=== PATIENT | male | born 1980 | race African-American/Black ===

== ENCOUNTER 2020-11-11 09:58 | Inpatient (IN) | payer MEDICAID, OTHER ==
[~2020-11-11] VITALS: Ht 177.8 cm; Wt 80.3 kg
[2020-11-11] MEDS ORDERED: ACETAMINOPHEN 325MG TABLET PO STA (10:19)
[2020-11-11] MEDS ORDERED: SODIUM CHLORIDE 0.9% 1000ML BAG (SEPSIS BOLUS) IV ONE (10:30)
[2020-11-11 10:49] LABS: HEMATOCRIT. 39.1 % (42.0-52.0); HEMOGLOBIN. 13.6 g/dL (14.0-18.0); MEAN CORPUSCULAR HEMOGLOBIN 30.5 pg (28.0-32.0); MEAN CORPUSCULAR VOLUME 88.1 fL (80.0-94.0); MEAN PLATELET VOLUME 9.1 fl (7.4-10.4); PLATELET 144 x1000/uL (130-400); RED BLOOD CELL COUNT 4.44 mill/uL (4.7-6.1); RED CELL DISTRIBUTION WIDTH 12.7 % (11.6-14.6)
[2020-11-11 10:50] LABS: CLARITY URINE CLEAR (CLEAR); COLOR URINE YELLOW (YELLOW); KETONES URINE NEGATIVE (NEGATIVE); LEUKOCYTE ESTERASE URINE NEGATIVE (NEGATIVE); NITRITE URINE NEGATIVE (NEGATIVE); OCCULT BLOOD URINE NEGATIVE (NEGATIVE); PROTEIN URINE NEGATIVE (NEGATIVE); SPECIFIC GRAVITY URINE 1.005 (1.005-1.030); UROBILINOGEN URINE 0.2 E.U./dL (0.2-1.0)
[2020-11-11 10:57] LABS: CHLORIDE 107 mEq/L (98-107)
[2020-11-11 10:58] LABS: INR 1.1; PROTHROMBIN TIME 11.8 sec (9.6-11.0)
[2020-11-11 12:29] LABS: PLATELET ESTIMATE NORMAL
[2020-11-11] MEDS ORDERED: VANCOMYCIN 1 G PREMIX 200 ML IV SCH (13:15)
[2020-11-11] MEDS ORDERED: CEFTRIAXONE 1 G PREMIX 50 ML IV SCH ×2 (13:15→14:45)
[2020-11-11] MEDS: SODIUM CHLORIDE 0.9% 1,000 ML IV SCH ×2 (14:45→22:33)
[2020-11-11] MEDS ORDERED: ONDANSETRON HCL 4MG/2ML INJ IV PRN (14:45)
[2020-11-11] MEDS ORDERED: CLONIDINE 0.1MG TABLET PO PRN (14:45)
[2020-11-11] MEDS ORDERED: DIPHENHYDRAMINE 50MG/ML VIAL IV PRN (14:45)
[2020-11-11 15:13] LABS: C REACTIVE PROTEIN CARDIAC 5.9 mg/L (0.00-3.00)
[2020-11-11] MEDS ORDERED: VANCOMYCIN 750 MG PREMIX 150 ML IV NR ×2 (16:00→22:00)
[2020-11-11 17:35] VITALS: BP 108/64
[2020-11-11] MEDS: ACETAMINOPHEN 325MG TABLET PO PRN (18:27)
[2020-11-11 20:00] VITALS: BP 134/83
[2020-11-11] MEDS ORDERED: HYDROCODONE/ACETAMINOPHEN 5/325MG TABLET PO PRN (21:00)
[2020-11-12] VITALS: BP 101/43
[2020-11-12] MEDS: ACETAMINOPHEN 325MG TABLET PO PRN ×3 (01:23→19:44)
[2020-11-12 04:00] VITALS: BP 98/54
[2020-11-12] MEDS ORDERED: VANCOMYCIN 1 G PREMIX 200 ML IV SCH ×2 (04:00→12:00)
[2020-11-12 07:18] LABS: HEMATOCRIT. 40.7 % (42.0-52.0); HEMOGLOBIN. 13.5 g/dL (14.0-18.0); MEAN CORPUSCULAR HEMOGLOBIN 29.3 pg (28.0-32.0); MEAN CORPUSCULAR VOLUME 88.4 fL (80.0-94.0); MEAN PLATELET VOLUME 9.6 fl (7.4-10.4); PLATELET 155 x1000/uL (130-400); RED BLOOD CELL COUNT 4.61 mill/uL (4.7-6.1); RED CELL DISTRIBUTION WIDTH 12.7 % (11.6-14.6)
[2020-11-12 07:32] LABS: CHLORIDE 111 mEq/L (98-107)
[2020-11-12 07:41] LABS: HDL CHOLESTEROL 41 mg/dL (40-59); LDL CHOLESTEROL 48 mg/dL (5-100)
[2020-11-12 08:00] VITALS: BP 110/67
[2020-11-12] MEDS: CEFTRIAXONE 1,000 MG in DEXTROSE 5% WATER 50 ML IV SCH (09:02)
[2020-11-12] MEDS ORDERED: VANCOMYCIN 750 MG PREMIX 150 ML IV SCH (10:00)
[2020-11-12] MEDS ORDERED: ACET650T37 MT (11:30)
[2020-11-12] MEDS ORDERED: LEVO750T46 MT (11:36)
[2020-11-12 12:00] VITALS: BP 107/71
[2020-11-12] MEDS ORDERED: CEFTRIAXONE 1,000 MG in DEXTROSE 5% WATER 50 ML IV SCH (14:00)
[2020-11-12] MEDS: SODIUM CHLORIDE 0.9% 1,000 ML IV SCH (14:38)
[2020-11-12 16:00] VITALS: BP 103/58
[2020-11-12 16:04] LABS: PLATELET ESTIMATE NORMAL
[2020-11-12 20:00] VITALS: BP 126/78
[2020-11-13] VITALS: BP 112/74
[2020-11-13] MEDS: ACETAMINOPHEN 325MG TABLET PO PRN ×2 (00:16→08:14)
[2020-11-13 04:00] VITALS: BP 110/67
[2020-11-13] MEDS: SODIUM CHLORIDE 0.9% 1,000 ML IV SCH (04:27)
[2020-11-13 08:00] VITALS: BP 112/68
[2020-11-13] MEDS: CEFTRIAXONE 1,000 MG in DEXTROSE 5% WATER 50 ML IV SCH (08:13)
[2020-11-13 12:00] VITALS: BP 114/78
[2020-11-13 13:37] VITALS: BP 112/64
[2020-11-14] MEDS ORDERED: ACET-2708 MT (05:32)
== END 2020-11-13 15:10 | disposition home or self-care (01) | DRG 720 ==
LOC: ER 09:58 → 7WST 14:14 → EDBEDREQ 14:17 → EDBEDREQSVC 14:17 → ENRESERV 14:44 → CANRESERV 14:44 → EDBEDREQSVC 14:54 → ENRESERV 15:38 → 7WST 11-13 08:35
PROVIDERS: ADMIT Internal Medicine; ATTEND Internal Medicine
DX: A41.89 Other specified sepsis (principal); U07.1 COVID-19; D72.825 Bandemia; R11.2 Nausea with vomiting, unspecified
CPT/HCPCS: 36415; 71045; 80053; 80061; 81003; 82728; 83605; 83615; 83880; 84145; 84443; 84484; 85025; 85379; 86141; 87426; 93005; 93970; 99291; J0696; J3370; J7030; J7060; U0003; U0005

== ENCOUNTER 2020-11-14 04:17 | Emergency (ER) | payer MEDICAID, OTHER ==
[~2020-11-14] VITALS: Ht 182.9 cm; Wt 82.0 kg
[~2020-11-14 04:17] MED LIST: ACET650T37 MT; LEVO750T46 MT
[2020-11-14] MEDS ORDERED: ACET-2708 MT (05:32)
[2020-11-14 05:56] VITALS: BP 110/71
== END 2020-11-14 05:58 | disposition home or self-care (01) ==
LOC: ER 04:25
DX: U07.1 COVID-19 (principal)
CPT/HCPCS: 99283

== ENCOUNTER 2022-06-08 16:51 | Emergency (ER) | payer MEDICAID ==
[~2022-06-08] VITALS: Ht 170.2 cm; Wt 78.0 kg
[~2022-06-08 16:51] MED LIST changes: +ACET-2708 MT; +ACET-3163 MT; -ACET650T37 MT; -LEVO750T46 MT; +LEVO750T68 MT
[2022-06-08 16:58] VITALS: BP 109/65
[2022-06-08] MEDS ORDERED: ACETAMINOPHEN 325MG TABLET PO ONE (18:45)
[2022-06-08] MEDS ORDERED: IBUPROFEN 400MG TABLET PO ONE (18:45)
[2022-06-08 19:21] LABS: BASOPHILS % 0.9 % (0.0-2.0); EOSINOPHILS % 4.8 % (0.0-5.0); HEMATOCRIT. 39.9 % (42.0-52.0); HEMOGLOBIN. 13.2 g/dL (14.0-18.0); LYMPHOCYTES % 43.8 % (20.0-50.0); MEAN CORPUSCULAR HEMOGLOBIN 29.7 pg (28.0-32.0); MEAN CORPUSCULAR VOLUME 89.7 fL (80.0-94.0); MEAN PLATELET VOLUME 8.8 fl (7.4-10.4); MONOCYTES % 8.9 % (2.0-8.0); NEUTROPHILS % 41.6 % (40.0-76.0); PLATELET 207 x1000/uL (130-400); RED BLOOD CELL COUNT 4.45 mill/uL (4.7-6.1); RED CELL DISTRIBUTION WIDTH 13.7 % (11.6-14.6)
[2022-06-08 19:33] LABS: CHLORIDE 107 mEq/L (98-107)
[2022-06-08] MEDS ORDERED: ACETAMINOPHEN 325MG TABLET PO NR (20:30)
[2022-06-08] MEDS ORDERED: IBUPROFEN 400MG TABLET PO NR (20:30)
== END 2022-06-08 20:40 | disposition home or self-care (01) ==
LOC: ER 16:51
DX: R07.9 Chest pain, unspecified (principal)
CPT/HCPCS: 36415; 71045; 80053; 83880; 84484; 85025; 93005; 99285

== ENCOUNTER 2022-07-30 22:42 | Emergency (ER) | payer MEDICAID ==
[~2022-07-30] VITALS: Ht 167.6 cm; Wt 88.5 kg
[2022-07-30 23:42] VITALS: BP 129/71
[2022-07-31] MEDS ORDERED: BO1 TP (00:10)
[2022-07-31] MEDS ORDERED: TOPUD PO (00:10)
[2022-07-31] MEDS ORDERED: POLY1BAN TP (00:24)
== END 2022-07-31 00:34 | disposition home or self-care (01) ==
LOC: ER 22:42
DX: M79.672 Pain in left foot (principal)
CPT/HCPCS: 99282

== ENCOUNTER 2023-11-14 21:31 | Emergency (ER) | payer MEDICAID, OTHER ==
[~2023-11-14] VITALS: Ht 177.8 cm; Wt 86.0 kg
[~2023-11-14 21:31] MED LIST changes: +BO1 TP; +POLY1BAN TP; +TOPUD PO
[2023-11-14 21:41] VITALS: BP 105/59; PULSE 68; RESP 16; TEMP 98.6; O2SAT 100
[2023-11-14 22:44] LABS: BASOPHILS % 0.9 % (0.0-2.0); EOSINOPHILS % 2.3 % (0.0-5.0); HEMATOCRIT. 42.1 % (42.0-52.0); HEMOGLOBIN. 13.6 g/dL (14.0-18.0); LYMPHOCYTES % 47.6 % (20.0-50.0); MEAN CORPUSCULAR HEMOGLOBIN 29.2 pg (28.0-32.0); MEAN CORPUSCULAR HGB CONC 32.3 g/dL (31.0-37.0); MEAN CORPUSCULAR VOLUME 90.4 fL (80.0-94.0); MEAN PLATELET VOLUME 8.3 fl (7.4-10.4); MONOCYTES % 7.9 % (2.0-8.0); NEUTROPHILS % 41.3 % (40.0-76.0); PLATELET 214 x1000/uL (130-400); RED BLOOD CELL COUNT 4.66 mill/uL (4.7-6.1); WHITE BLOOD COUNT 4.6 x1000/uL (4.5-11.0)
[2023-11-14 22:46] LABS: CLARITY URINE CLEAR (CLEAR); COLOR URINE YELLOW (YELLOW); GLUCOSE URINE NEGATIVE (NEGATIVE); KETONES URINE NEGATIVE (NEGATIVE); LEUKOCYTE ESTERASE URINE NEGATIVE (NEGATIVE); NITRITE URINE NEGATIVE (NEGATIVE); OCCULT BLOOD URINE NEGATIVE (NEGATIVE); PH URINE 5.5 (4.5-8.0); PROTEIN URINE NEGATIVE (NEGATIVE); UROBILINOGEN URINE 0.2 E.U./dL (0.2-1.0)
[2023-11-14 22:49] LABS: CHLORIDE 109 mEq/L (98-107); POTASSIUM 3.8 mEq/L (3.5-5.1); SODIUM 139 mEq/L (136-145)
[2023-11-14 22:50] LABS: CALCIUM 9.5 mg/dL (8.7-10.4); CARBON DIOXIDE 25 mEq/L (21-32)
[2023-11-14 22:55] LABS: CREATININE 1.1 mg/dL (0.6-1.3); GLUCOSE 73 mg/dL (70-105); UREA NITROGEN BLOOD 11 mg/dL (9-23)
[2023-11-14 23:00] LABS: TROPONIN I HIGH SENSITIVITY 81 ng/L (3.0-53)
== END 2023-11-14 23:35 | disposition left against medical advice (07) ==
LOC: ER 21:31
DX: I21.4 Non-ST elevation (NSTEMI) myocardial infarction (principal); R53.1 Weakness; Z79.899 Other long term (current) drug therapy
CPT/HCPCS: 80048; 81003; 85025; 84484; 36415; 93005; 99284; Z7610